=== PATIENT | female | born 1985 | race Caucasian/White ===

== ENCOUNTER 2019-03-12 03:57 | Emergency (ER) | payer OTHER, MEDICAID ==
[~2019-03-12] VITALS: Ht 162.6 cm; Wt 61.0 kg
[2019-03-12] MEDS ORDERED: SODIUM CHLORIDE 0.9% 1,000 ML IV ONE (04:27)
[2019-03-12] MEDS ORDERED: KETOROLAC 30MG/ML VIAL IV STA (04:27)
[2019-03-12] MEDS ORDERED: ONDANSETRON HCL 4MG/2ML INJ IV STA (04:27)
[2019-03-12 04:54] LABS: BASOPHILS % 0.8 % (0.0-2.0); EOSINOPHILS % 1.2 % (0.0-5.0); HEMATOCRIT. 39.1 % (36.0-48.0); HEMOGLOBIN. 13.4 g/dL (12.0-16.0); LYMPHOCYTES % 32.3 % (20.0-50.0); MEAN CORPUSCULAR HEMOGLOBIN 28.9 pg (28.0-32.0); MEAN CORPUSCULAR VOLUME 84.6 fL (81.0-99.0); MEAN PLATELET VOLUME 8.1 fl (7.4-10.4); MONOCYTES % 4.6 % (2.0-8.0); NEUTROPHILS % 61.1 % (40.0-76.0); PLATELET 246 x1000/uL (130-400); RED BLOOD CELL COUNT 4.63 mill/uL (4.2-5.4)
[2019-03-12 04:57] LABS: INR 1.1; PARTIAL THROMBOPLASTIN TIME 27.8 sec (23.4-31.0); PROTHROMBIN TIME 10.8 sec (9.6-11.0)
[2019-03-12 04:58] LABS: CHLORIDE 112 mEq/L (98-107)
[2019-03-12] MEDS ORDERED: MORPHINE SULFATE 4 MG/ML CPJ (NOT FOR IM USE) IV ONE (06:30)
[2019-03-12] MEDS ORDERED: IOHEXOL-300 100 ML BOTTLE ONE (07:09)
[2019-03-12 07:12] VITALS: BP 120/70
== END 2019-03-12 07:13 | disposition home or self-care (01) ==
LOC: ER 04:29
DX: R10.31 Right lower quadrant pain (principal); V43.62XA Car passenger injured in collision with other type car in traffic accident, initial encounter; Y93.89 Activity, other specified; Y92.488 Other paved roadways as the place of occurrence of the external cause
CPT/HCPCS: 36415; 71045; 74177; 80053; 83690; 85025; 85610; 85730; 86850; 86900; 86901; 96374; 96375; 99284; J1885; J2270; J2405; J7030; Q9967; Z7610

== ENCOUNTER 2019-11-20 04:55 | Emergency (ER) | payer OTHER, MEDICAID ==
[~2019-11-20] VITALS: Ht 144.8 cm; Wt 61.2 kg
[2019-11-20 09:03] VITALS: BP 91/64
== END 2019-11-20 09:14 | disposition home or self-care (01) ==
LOC: ER 04:55
DX: Z03.818 Encounter for observation for suspected exposure to other biological agents ruled out (principal); R05 Cough; R19.7 Diarrhea, unspecified; I49.9 Cardiac arrhythmia, unspecified
CPT/HCPCS: 71045; 93005; 99285; U0003

== ENCOUNTER 2022-10-23 17:05 | Emergency (ER) | payer OTHER, MEDICAID ==
[~2022-10-23] VITALS: Ht 157.5 cm; Wt 59.1 kg
[2022-10-23 17:30] VITALS: BP 135/79
[2022-10-23 18:04] LABS: BASOPHILS % 0.7 % (0.0-2.0); EOSINOPHILS % 2.8 % (0.0-5.0); HEMATOCRIT. 34.7 % (36.0-48.0); HEMOGLOBIN. 11.6 g/dL (12.0-16.0); LYMPHOCYTES % 25.8 % (20.0-50.0); MEAN CORPUSCULAR HEMOGLOBIN 26.5 pg (28.0-32.0); MEAN CORPUSCULAR VOLUME 79.3 fL (81.0-99.0); MEAN PLATELET VOLUME 7.8 fl (7.4-10.4); NEUTROPHILS % 63.7 % (40.0-76.0); PLATELET 239 x1000/uL (130-400); RED BLOOD CELL COUNT 4.37 mill/uL (4.2-5.4)
[2022-10-23 18:08] LABS: CHLORIDE 107 mEq/L (98-107)
== END 2022-10-23 21:51 | disposition home or self-care (01) ==
LOC: ER 17:05
DX: R07.89 Other chest pain (principal)
CPT/HCPCS: 36415; 71045; 80053; 84484; 85025; 93005; 99285